=== PATIENT | female | born 1980 | race Caucasian/White ===

== ENCOUNTER 2018-11-12 18:33 | Emergency (ER) | payer OTHER ==
[~2018-11-12] VITALS: Ht 157.5 cm; Wt 61.7 kg
[2018-11-12 20:02] VITALS: BP 155/94
--- NOTE | 2018-11-12 20:06 | NUR ---
PT AMBULATED TO LOBBY. ACCOMPANIED BY FAMILY.
--- NOTE | 2018-11-12 20:13 | NUR ---
PT AMBULATED TO BED 06.
--- NOTE | 2018-11-12 20:15 | NUR ---
37/F PRESENTS TO ED WITH SON, C/O PRODUCTIVE COUGH WITH GREEN PHLEGM X1 DAY, REPORTS THAT IT IS DIFFERENT THAT PT'S CHRONIC DRY COUGH. PT REPORTS HAVING SORE THROAT AND R EAR PAIN SINCE YESTERDAY. PT REPORTS BEING SEEN HERE 5 DAYS AGO DUE TO BL CHEEK/FACIAL TENDERNESS. PT IS HAS LEUKEMIA, IS ON CHEMO RX TISIGNA (SINCE 03/2018). AOX4, GCS 15, SKIN NORMAL WARM DRY, RR EVEN AND UNLABORED. LUNG SOUNDS CLEAR BL. HX LEUKEMIA RX TISIGNA (SINCE 03/2018)
[2018-11-12 21:18] VITALS: BP 123/85
--- NOTE | 2018-11-12 21:19 | NUR ---
Patient discharged with v/s stable. Written and verbal after care instructions given and explained. Patient alert, oriented and verbalized understanding of instructions. Ambulatory with steady gait. All questions addressed prior to discharge. ID band removed. Patient advised to follow up with PMD. Rx of DIFLUCAN, AZITHROMYCIN, PROMETHAZINE given. Patient educated on indication of medication including possible reaction and side effects. Opportunity to ask questions provided and answered.
== END 2018-11-12 21:18 | disposition home or self-care (01) ==
LOC: MED 18:33
DX: J02.8 Acute pharyngitis due to other specified organisms (principal); B96.89 Other specified bacterial agents as the cause of diseases classified elsewhere; Z88.0 Allergy status to penicillin; Z85.6 Personal history of leukemia
CPT/HCPCS: 99283

== ENCOUNTER 2019-05-27 19:43 | Emergency (ER) | payer OTHER ==
[~2019-05-27] VITALS: Ht 157.5 cm; Wt 63.5 kg
[2019-05-27 19:58] VITALS: BP 142/84
[2019-05-27 22:26] VITALS: BP 127/81
--- NOTE | 2019-05-27 22:26 | NUR ---
PT DISCHARGED WITH PAPERWORK. RX DOXYCYCLINE. EDUCATED PT REGARDING MEDICATION AND POSSIBLE S/E. EDUCATED PT REGARDING D/C DIAGNOSIS AND INSTRUCTIONS. PT VERBALIZED UNDERSTANDING OF TEACHING. TOLD PT TO FOLLOW UP WITH PCP AND WHEN TO RETURN TO ED. PT AT STABLE CONDITION. ALL QUESTIONS ANSWERED.
== END 2019-05-27 22:26 | disposition home or self-care (01) ==
LOC: MED 19:43
DX: R05 Cough (principal); M79.18 Myalgia, other site; Z88.0 Allergy status to penicillin
CPT/HCPCS: 71045; 87804; 99284; Q0092